=== PATIENT | female | born 1945 | race Caucasian/White ===

== ENCOUNTER 2016-07-10 07:01 | Observation (INO) | payer MEDICARE ==
[2016-07-04 08:59] VITALS: Ht 164.1 cm; Wt 78.0 kg
[~2016-07-10] VITALS: Ht 164.1 cm; Wt 78.0 kg
[2016-07-10] VITALS (11 sets, daily range): BP systolic 94–124; RESP 10–20; TEMP 96.8–98
[2016-07-10] MEDS ORDERED: CEFAZOLIN 2,000 MG in SODIUM CHLORIDE 0.9% 100 ML IV ONE (07:25)
[2016-07-10] MEDS ORDERED: MIDAZOLAM 2 MG/2 ML INJ IV ONE (07:55)
[2016-07-10] MEDS ORDERED: GLYCOPYRROLATE 0.2 MG/ML VIAL IV ONE ×2 (07:55→10:12)
[2016-07-10] MEDS ORDERED: LACT RINGERS 1,000 ML IV SCH ×2 (07:55→10:55)
[2016-07-10] MEDS ORDERED: SCOPOLAMINE PATCH TRANSDERM ONE (07:55)
[2016-07-10] MEDS ORDERED: LIDOCAINE 1% BUFFERED 1 ML SYR INTRADERM PRN (07:55)
[2016-07-10] MEDS ORDERED: ONDANSETRON 4 MG VIAL IV ONE (07:55)
[2016-07-10] MEDS ORDERED: ONDANSETRON 4 MG VIAL IV PRN ×2 (09:55→10:55)
[2016-07-10] MEDS ORDERED: DILAUDID 1 MG/ML AMP IV PRN (09:55)
[2016-07-10] MEDS ORDERED: MEPERIDINE 25 MG/ML IV PRN (09:55)
[2016-07-10] MEDS ORDERED: MORPHINE 2 MG/ML SYR IV PRN ×2 (09:55→10:55)
[2016-07-10] MEDS ORDERED: OXYCODONE 5 MG TAB PO PRN (09:55)
[2016-07-10] MEDS ORDERED: MORPHINE 4 MG/ML SYR IV PRN (09:55)
[2016-07-10] MEDS ORDERED: ONDANSETRON 4 MG VIAL IV PUSH ONE (10:12)
[2016-07-10] MEDS ORDERED: PROPOFOL 20 ML PER ML IV ONE (10:12)
[2016-07-10] MEDS ORDERED: ROCURONIUM 50 MG VIAL IV ONE (10:12)
[2016-07-10] MEDS ORDERED: NEOSTIGMINE 10 MG/10 ML VIAL IV ONE (10:12)
[2016-07-10] MEDS ORDERED: FENTANYL 100 MCG/2 ML AMP IV ONE (10:12)
[2016-07-10] MEDS ORDERED: METHYLENE BLUE 1% 10 ML AMP IV ONE (10:20)
[2016-07-10] MEDS ORDERED: BISACODYL 10 MG SUPP RECTAL PRN (10:55)
[2016-07-10] MEDS ORDERED: Ibuprofen 600 MG TAB PO PRN (10:55)
[2016-07-10] MEDS ORDERED: KETOROLAC 30 MG/ML VIAL IV PRN (10:55)
[2016-07-10] MEDS ORDERED: PROMETHAZINE 25 MG/ML VIAL IM/IV PRN (10:55)
[2016-07-10] MEDS ORDERED: ZOLPIDEM 5 MG TAB PO PRN (10:55)
[2016-07-10] MEDS ORDERED: SALINE FLUSH 10 ML FLUSH PRN (10:55)
[2016-07-10] MEDS: OXYCODONE/APAP 5/325 TAB PO PRN (15:38)
[2016-07-11 00:35] VITALS: BP_SYST 109; RESP 16; TEMP 97.8
[2016-07-11 04:40] VITALS: BP_SYST 95; RESP 16; TEMP 98.2
[2016-07-11 07:22] VITALS: BP_SYST 116; RESP 16; TEMP 98.7
[2016-07-11 08:33] VITALS: BP_SYST 116; RESP 16; TEMP 98.7
[2016-07-11] MEDS: OXYCODONE/APAP 5/325 TAB PO PRN (08:51)
[2016-07-11] MEDS ORDERED: REMOVE TRANSDERMAL PATCH TOPICAL ONE (11:25)
[2016-07-13] MEDS ORDERED: REMOVE SCOPALAMINE PATCH XX ONE (07:55)
== END 2016-07-11 08:31 | disposition home or self-care (01) ==
LOC: SURG 07:01 → ENPENDDIS 10:51 → SDS 10:51 → 3S 11:39
PROVIDERS: ADMIT Obstetrics & Gynecology; ATTEND Obstetrics & Gynecology
CPT/HCPCS: 52000; 58570; 58661; 85025 ×2; 88307 ×2; 93005 ×2; 94799; J1170; J1885; J2250; J2405; J2704; J3010; J7120; Q9968